=== PATIENT | female | born 1950 | race Caucasian/White ===

== ENCOUNTER → 2016-04-29 | Outpatient (CLI) | payer BC ==
[~2016-04-29] MED LIST: BIOT1CAP8 PO; CALC625T13 PO; CHOL100010 PO; MACU HEALTH PO; MULT-506 PO; OMEG10007 PO; OYST500T47 PO
== END | disposition home or self-care (01) ==
LOC: C.MAMM 10:18
PROVIDERS: ATTEND Family Medicine
DX: M85.851 Other specified disorders of bone density and structure, right thigh (principal); M85.852 Other specified disorders of bone density and structure, left thigh; M85.88 Other specified disorders of bone density and structure, other site

== ENCOUNTER → 2016-10-04 | Outpatient (CLI) | payer BC ==
--- NOTE | 2016-10-04 13:36 | MAMMOGRAPHY REPORT ---
BILATERAL DIGITAL SCREENING MAMMOGRAM WITH CAD: 10/04/2016 CLINICAL HISTORY: Routine screening. Patient has no complaints. TECHNIQUE: Current study was also evaluated with a Computer Aided Detection (CAD) system. Bilateral CC and MLO views were obtained. COMPARISON: Comparison is made to exams dated: 10/04/2015 mammogram, 09/07/2014 mammogram, 09/06/2013 m ammogram, 09/03/2012 mammogram, 09/02/2011 mammogram, and 08/31/2010 mammogram - [facility] enter. BREAST COMPOSITION: There are scattered areas of fibroglandular density in both breasts. FINDINGS: No suspicious masses, calcifications, or areas of architectural distortion are noted in ei ther breast. There has been no significant interval change compared to prior exams. IMPRESSION: ACR BI-RADS CATEGORY 1: NEGATIVE There is no mammographic evidence of malignancy. A 1 year screening mammogram is recommended. The pa tient will receive written notification of the results. Approximately 10% of breast cancers are not detected with mammography. A negative mammographic report should not delay biopsy if a clinically suggestive mass is present. Surekha Sellers M.D. /:10/04/2016 12:15:51 Telephone Information Supervisor: Heather HOLT(Jigna)(Nicky)([place]), [facility] letter sent: Normal 1/2 BI-RADS Code: ACR BI-RADS Category 1: Negative
== END | disposition home or self-care (01) ==
LOC: C.MAMM 09:22
PROVIDERS: ATTEND Family Medicine
DX: Z12.31 Encounter for screening mammogram for malignant neoplasm of breast (principal)